=== PATIENT | female | born 1980 | race Caucasian/White ===

== ENCOUNTER → 2020-09-10 | Outpatient (CLI) | payer OTHER ==
[2016-02-04 10:47] VITALS: BP 106/76
[~2020-09-10] MED LIST: ACET500T68 PO; ADAL20KI SQ; ALPR1TAB2 PO; ALPR1TAB6 PO; ALPR2TAB5 PO; ANIDULAFUNGIN IV; BUDE3CAP15 PO; CERT400S SQ; COLE1TAB PO; DAPT350V IV; DICY10CA53 PO; DIPH1TAB PO; DIPH1TAB5 PO; DIPH25CA58 PO; DIVA250T PO; ERGO500027 PO; FAMO20TA5 PO; FENT1PAT17 TD; FENT1PAT19 TP; FENT1PAT21 TD; FENT50AM IJ; HYDR-2769 PO; INSU100V6 SQ; LEVO500T59 PO; LINE600T12 PO; LORA2DIS2 IJ; MEDR150D3 IM; MERO500V24 IV; METR500T PO; MICA100V3 IV; MORP-16 PO; MORP15TA PO; MULT-246 PO; NALO0.4V14 IJ; OCTR100A SUBCUT; OXYC-325 PO; OXYC10TA PO; OXYC10TA46 PO; OXYC15TA22 PO; OXYC1TAB15 PO; OXYC1TAB22 PO; OXYC5TAB88 PO; PANT40TA77 IV; POTA20TA12 PO; PRED-220 PO; PRED20TA PO; RIZA10TA PO; SCOP1PAT11 TP; TRAZ-118 PO; ZOLP10TA PO; [UNRECOGNIZED DRUG - CODE] IV; depoprovera; phenergan PO
== END ==
LOC: LAB 11:00
PROVIDERS: ATTEND Obstetrics & Gynecology
DX: Z01.812 Encounter for preprocedural laboratory examination (principal); R10.2 Pelvic and perineal pain; Z20.828 Contact with and (suspected) exposure to other viral communicable diseases
CPT/HCPCS: U0003

== ENCOUNTER 2020-09-13 07:21 | Day surgery (SDC) | payer OTHER ==
[~2020-09-13 07:21] MED LIST changes: -ACET500T68 PO; -ALPR2TAB5 PO; -ANIDULAFUNGIN IV; +BUPIVACAINE-EPI 0.25%-1:200000 MPF 30 ML VIAL. INJ ONE; -DAPT350V IV; -FENT1PAT17 TD; -FENT50AM IJ; -INSU100V6 SQ; +LIDOCAINE 1% PF 2 ML VIAL. ID PRN; -LINE600T12 PO; -LORA2DIS2 IJ; -MERO500V24 IV; -MICA100V3 IV; -NALO0.4V14 IJ; -OCTR100A SUBCUT; +ONDANSETRON PF 4 MG/2 ML VIAL. IV PRN; -OXYC-325 PO; -OXYC15TA22 PO; -OXYC5TAB88 PO; -PANT40TA77 IV; +PROCHLORPERAZINE 10 MG/2 ML VIAL. IV PRN; -TRAZ-118 PO; -[UNRECOGNIZED DRUG - CODE] IV; +ceFAZolin SODIUM IV Push 1 GM VIAL. IVP PRN; +fentaNYL PF VIAL 100 MCG/2 ML VIAL IV PRN
[2020-09-13] MEDS ORDERED: SURGICEL HEMOSTAT 4X8 EACH. ONE (07:36)
[2020-09-13] MEDS: IV RINGERS,LACTATED 1000ML 1,000 ML IV SCH ×2 (07:58→10:52)
[2020-09-13] MEDS ORDERED: fentaNYL PF VIAL 100 MCG/2 ML VIAL ONE (09:03)
[2020-09-13] MEDS ORDERED: MIDAZOLAM HCL/PF 2 MG/2 ML VIAL. ONE (09:03)
[2020-09-13] MEDS ORDERED: ROCURONIUM 50 MG/5 ML VIAL. ONE (09:03)
[2020-09-13] MEDS ORDERED: DEXAMETHASONE SOD PHOS 4 MG/ML VIAL ONE (09:04)
[2020-09-13] MEDS ORDERED: LIDOCAINE 2% PF 5 ML VIAL. ONE (09:04)
[2020-09-13] MEDS ORDERED: KETOROLAC 30 MG/ML VIAL. ONE (09:04)
[2020-09-13] MEDS ORDERED: FAMOTIDINE 20 MG/2 ML VIAL ONE (09:04)
[2020-09-13] MEDS ORDERED: PROPOFOL 10 MG/ML (20ML) VIAL. IV ONE ×2 (09:04→09:37)
[2020-09-13] MEDS ORDERED: ESMOLOL 100 MG/10 ML VIAL. IVP ONE (09:36)
[2020-09-13] MEDS ORDERED: HYDROmorphone 2 MG/ML VIAL ONE ×2 (09:37→11:20)
[2020-09-13] MEDS ORDERED: SUGAMMADEX SODIUM 200 MG/2 ML VIAL. IVP ONE (10:00)
--- NOTE | 2020-09-13 10:27 | PDOC ---
BRIEF OPERATIVE NOTE Date: Sep 13, 2020 Pre-Op Diagnosis CPP Dysmenorrhea Suspect Endometriosis Post-Op Diagnosis Same + Severe ABd adhesions Procedure Performed Dx [facility] Surgeon Dr. Kumar Anesthesia Type: General Blood Loss 5 ml Specimens Obtained none Findings severe abd wall adhesions Complications none Operative Note see dictation DIAMOND KUMAR Jr, MD Sep 13, 2020 10:27
--- NOTE | 2020-09-13 10:30 | DISCH ---
DISCHARGE INSTRUCTIONS Condition on Discharge Condition on Discharge: Stable Activity After Discharge Activity Instructions for Disc: Activity as tolerated Lifting Instructions after Dis: No heavy lifting Driving Instructions after Dis: Do not drive today Diet after Discharge Diet after Discharge: Regular Contacting the DRRylan after DC Call your doctor for: Concerns you may have Follow-Up Follow up with: Dr. Hyman in 1 week DIAMOND HYMAN Jr, MD Sep 13, 2020 10:29
[2020-09-13] MEDS ORDERED: SCOPOLAMINE 1.5MG PATCH. TD ONE ×2 (10:46→11:00)
[2020-09-13] MEDS ORDERED: MORPHINE SULFATE 2 MG/ML VIAL. ONE ×2 (11:03→12:07)
[2020-09-13] MEDS: MORPHINE SULFATE 2 MG/ML VIAL. IV PRN ×4 (11:05→12:20)
[2020-09-13] MEDS ORDERED: OXYC-325 PO (11:11)
--- NOTE | 2020-09-13 11:18 | OP ---
DATE OF SURGERY: 09/13/2020 PREOPERATIVE DIAGNOSES: 1. Chronic pelvic pain. 2. Dysmenorrhea. 3. Suspect endometriosis. POSTOPERATIVE DIAGNOSES: 1. Chronic pelvic pain. 2. Dysmenorrhea. 3. Suspect endometriosis. 4. Severe abdominal adhesions. PROCEDURE: Diagnostic laparoscopy. SURGEON: Aramis Kumar MD ANESTHESIA: GETA. ESTIMATED BLOOD LOSS: 5 mL. COMPLICATIONS: None. FINDINGS: Severe abdominal wall adhesions. SUMMARY: A 39-year-old with long history of chronic pelvic pain and dysmenorrhea. The patient was evaluated and diagnosed with the high suspicion for endometriosis. The patient was counseled on the risks, benefits and expectations of laparoscopic surgery for possible resection of endometriosis and voiced a clear understanding to proceed. DESCRIPTION OF PROCEDURE: The patient was taken to surgery suite and placed in dorsal lithotomy position, was prepped with ChloraPrep for abdominal prep and Betadine for vaginal prep, and draped in a sterile fashion. After adequate anesthesia, bivalve speculum was placed vaginally. The anterior lip of the cervix grasped with single tooth tenaculum. The bivalve speculum was removed. Uterine acorn manipulator was placed. Attention was now placed on the abdomen. A small transverse skin incision was made in the left upper quadrant with a scalpel. Veress needle was then placed through the incision site. We were unable to obtain access through this left upper abdominal incision. Therefore, we made an incision just below the umbilicus in a transverse fashion and dissected down to open dissection which ran intraabdominally. There were many, many adhesions and unable to visualize any further of the abdominal cavity due to the dense adhesions. We then stopped the procedure at this point. We did the repair on the fascia level for the infraumbilical incision site which we repaired with 2-0 Vicryl suture in running fashion. Both abdominal incisions were closed at the skin level using 4-0 Vicryl suture in subcuticular manner. Marcaine 0.25% with epinephrine was injected at each incision site. The single tooth tenaculum and Silverio uterine manipulator were then removed. The patient tolerated the procedure well and was taken to the recovery room in stable condition. Sponge and needle count correct x 3. ARAMIS KUMAR MD DR: SERGIO/cynthia JOB#: [id number] / [id number]
[2020-09-13] MEDS: HYDROmorphone 2 MG/ML VIAL IV PRN ×4 (11:23→12:15)
[2020-09-13] MEDS ORDERED: oxyCODONE/APAP 5/325 1 TAB TABLET PO ONE ×2 (11:30)
[2020-09-13 11:39] VITALS: BP 125/90
[2020-09-13] MEDS ORDERED: HEPARIN PF 500 UNIT/5 ML DISP.SYRIN. IVP ONE (11:45)
== END 2020-09-13 12:37 | disposition home or self-care (01) ==
LOC: SURG 07:21
PROVIDERS: ATTEND Obstetrics & Gynecology
DX: G89.29 Other chronic pain (principal); R10.2 Pelvic and perineal pain; N94.6 Dysmenorrhea, unspecified; K66.0 Peritoneal adhesions (postprocedural) (postinfection); F41.9 Anxiety disorder, unspecified; F32.9 Major depressive disorder, single episode, unspecified; Z79.899 Other long term (current) drug therapy; Z98.890 Other specified postprocedural states; Z88.2 Allergy status to sulfonamides; Z88.0 Allergy status to penicillin; Z88.1 Allergy status to other antibiotic agents; Z88.8 Allergy status to other drugs, medicaments and biological substances
CPT/HCPCS: 49320; 81025; J0690; J1100; J1170; J1642; J1885; J2250; J2270; J2704; J3490; J7120; J3010